=== PATIENT | male | born 1995 | race Caucasian/White ===

== ENCOUNTER 2021-03-12 15:07 | Emergency (ER) | payer SELFPAY ==
[2021-03-12 15:16] VITALS: BP 168/82; PULSE 128; RESP 26; TEMP 37; O2SAT 97; BMI 22.8
--- NOTE | 2021-03-12 15:36 | PC.PHAR ---
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
--- NOTE | 2021-03-12 15:37 | ED_ITS ---
HPI - Wound/Laceration General: Chief Complaint: Wound/Laceration Stated Complaint: FALL Time Seen by Provider: 03/12/21 15:31 History of Present Illness: HPI narrative: Patient is a 26-year-old male comes to the ED with injury to left hand. Patient says he fell down some steps at his home and his left hand hit through a window and broke it. He has multiple cuts all over his left hand and says it hurts for him to move his fingers. Patient says he is up-to-date on his tetanus. Associated symptoms: Denies chills, fever(s), nausea or vomiting Review of Systems Const: Denies: fever(s), chills or fatigue Eyes: Denies: change in vision or eye discomfort ENMT: Denies: throat pain, odynophagia, nasal discharge or nasal congestion Card: Denies: chest pain, palpitations, edema, swelling of feet/ankles, dyspnea on exertion or orthopnea Resp: Denies: dyspnea, productive cough or non-productive cough GI: Denies: abdominal pain, nausea, vomiting, diarrhea, constipation or hematochezia : Denies: flank pain, difficulty urinating, dysuria or hematuria Musc: Denies: neck pain, back pain or extremity swelling Skin/Breast: Reports: new lesions (Multiple linear superficial lacerations on left hand.); Denies: rash Neuro: Denies: headache(s), numbness in extremities or weakness in extremities Physical Exam Const: COMMON NORMALS: no acute distress, patient oriented x3 and alert GENERAL APPEARANCE: cooperative and comfortable HENMT: COMMON NORMALS: normocephalic HEAD & SCALP: normocephalic MOUTH: Normal oral and palatal mucosa present THROAT: posterior oropharynx normal and uvula midline Neck/C-Spine: COMMON NORMALS: supple GENERAL: Yes normal visual inspection Resp: COMMON NORMALS: normal respiratory effort, No retractions, No use of accessory muscles and clear to auscultation bilaterally AUSCULTATION: clear to auscultation bilaterally Cardio: COMMON NORMALS: regular rate, regular rhythm, S1 normal heart sound present, S2 normal heart sound present, No gallops present (Cardio), No clicks present (Cardio), No murmurs present (Cardio) and Peripheral pulses 2+ throu ghout RATE: regular rate RHYTHM: regular rhythm HEART SOUNDS: S1 normal heart sound present and S2 normal heart sound present PERIPHERAL PULSES: Peripheral pulses 2+ throughout GI: COMMON NORMALS: Normal to inspection, nondistended, normoactive bowel sounds present, Soft to palpation, non-tender and no masses PALPATION: Yes Soft to palpation : COMMON NORMALS: Yes no CVA tenderness BLADDER/KIDNEY EXAM: Yes no CVA tenderness Back/Pelvis: COMMON NORMALS: no CVA tenderness Extremity: NARRATIVE EXTREMITY EXAM: Left hand?patient has multiple superficial lacerations to left hand and wrist. Left hand has five 1 cm superficial linear lacerations to left hand. There is minimal bleeding at some of the lacerations. No foreign body seen. GENERAL: Yes normal exam except as noted Neuro: COMMON NORMALS: patient oriented x3 and moves all extremities SENSORIUM/ORIENTATION: Yes alert Skin: NARRATIVE SKIN EXAM: Left hand?patient has multiple superficial lacerations to left hand and wrist. Left hand has five 1 cm superficial linear lacerations to left hand. There is minimal bleeding at some of the lacerations. No foreign body seen. GENERAL SKIN EXAM: dry skin Procedures Laceration Laceration 1: Site: hand Side (If applicable): left Size (cm): 1 (Patient had 5 superficial 1 cm lacerations on left hand.) Description: linear Depth: simple, single layer Local Anesthetic: lidocaine 1% Amount of anesthesia used (mL): 10 Skin layer closed with: nylon Size (cm): 4-0 Number of sutures: 10 (10 total sutures used to close the small 5 linear lacerations on left hand.) Technique: simple, interrupted Course Vital Signs: Vital signs: Vital Signs Temperature 98.6 F 03/12/21 15:16 Pulse Rate 118 H 03/12/21 15:58 Respiratory Rate 18 03/12/21 15:58 Blood Pressure 160/83 03/12/21 15:58 Pulse Oximetry 97 03/12/21 15:58 MDM - Wound/Laceration MDM Narrative: Medical decision making narrative: Patient is a 26-year-old male comes to the ED with multiple lacerations on left hand. Patient says his left hand hit some glass and broke and that is what caused lacerations. Exam shows 5 superficial 1 cm laceration on left hand and wrist. There is minimal bleeding. X-ray shows no acute fractures or findings. Lacerations were irrigated extensively with normal saline and hand was cleaned with iodine wash. Lidocaine 1% used as local. I used a total of 10 sutures to close up the five 1 cm linear lacerations on patient's left hand. Patient was discharged home with a prescription for Keflex. He was instructed on suture care and when to get sutures removed. Follow-up with medical provider for suture removal in 7 to 10 days. Patient understood and agreed with plan. Imaging Data^: Xray Ortho: Attestation: I personally reviewed and interpreted this imaging study as follows: Radiologist's impression: [employer] [place] [address] XRay Report Signed Patient: Pawan Olivares Unit #: [id number] : 1995 Age/Sex: 26 / M ADM Date: 03/12/21 Loc: ER Room/Bed: Attending Dr: Ordering Provider/Ordering MD: Lee Amos Date of Service: 03/12/21 Procedure(s): XR hand LT min 3V* 73798 Accession Number(s): [id number] Report Number: [id number] PROCEDURE INFORMATION: Exam: XR Left Hand Exam date and time: 03/12/2021 4:10 PM Age: 26 years old Clinical indication: Injury or trauma; Other: Hit glass; Blunt trauma (contusions or hematomas); Hand; Left; Additional info: Hand injury, hit glass TECHNIQUE: Imaging protocol: XR Left hand. Views: 3 or more views. COMPARISON: No relevant prior studies available. FINDINGS: Bones/joints: No fractures. Alignment unremarkable. Flexion deformity 5th digit PIP joint. No erosion. No lytic lesion. Soft tissues: Soft tissue swelling over the dorsum of the hand. No soft tissue foreign body. XR/XR hand LT min 3V* [id number] IMPRESSION: 1. No acute osseous abnormality of left hand. 2. Nonspecific flexion deformity 5th digit PIP joint. Dictated By: Young Solorio Signed By: Young Solorio Signed Date/Time: 03/12/211625 DD/ 23 Discharge Plan Discharge Patient Disposition: Home Clinical Impression: Laceration of multiple sites of hand and wrist Qualifiers: Encounter type: initial encounter Laterality: left Qualified Code(s): S61.412A - Laceration without foreign body of left hand, initial encounter Condition: Stable Prescriptions: New cephalexin 500 mg capsule 500 mg PO Q6H 3 Days Qty: 12 RF: 0 No Action ibuprofen 200 mg Tablet 800 mg PO PRN RF: 0 Discharge Orders: Discharge ED (Routine); Ordered 03/12/21 Ordered By: Lee Amos Discharge Diet: Regular Discharge Activity: Increase activity as tolerated Patient Instructions: Suture Care (ED), Laceration (ED) Activity Restrictions/Additional Instructions: Take full course of antibiotics as prescribed. Keep laceration site clean and dry for the next 48 hours. Then after that you can clean and re-bandage daily. Watch for signs of infection such as redness, warmth, increased tenderness and puslike drainage. If you see the signs of infection return to the ED, urgent care or PCP for reevaluation. call your PCP to schedule a follow-up appointment for reevaluation and suture removal in about 10 days. Continue taking all home meds. Follow discharge plans as discussed. You can return to the ED if symptoms worsen. 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
[2021-03-12 15:58] VITALS: BP 160/83; PULSE 118; RESP 18; O2SAT 97
[2021-03-12] MEDS: lidocaine 1% INJ 20 mL INJECTION (16:24)
== END 2021-03-12 17:22 | disposition home or self-care (01) ==
PROVIDERS: Emergency Provider Physician Assistant
DX: S61.412A Laceration without foreign body of left hand, initial encounter (principal); W01.110A Fall on same level from slipping, tripping and stumbling with subsequent striking against sharp glass, initial encounter
CPT/HCPCS: 12002; 73130; 99283

== ENCOUNTER 2021-03-20 09:18 | Emergency (ER) | payer SELFPAY ==
[2021-03-20 09:26] VITALS: BP 126/105; PULSE 132; RESP 16; TEMP 36.6; O2SAT 98; BMI 20.9
--- NOTE | 2021-03-20 09:34 | ED_ITS ---
HPI - Extremity Problem General: Chief complaint: Extremity Problem,Nontraumatic Stated complaint: CANT MOVE HAND AFTER STITCHES Time Seen by Provider: 03/20/21 09:19 History of Present Illness: HPI Narrative: 26-year-old male presents with complaints of inability to move hand. He was seen hereIn the emergency room after putting his hand through a glass window he had multiple small lacerations all of which were sutured otherwise cleaned by the PA. He states now he can move his left fifth finger. He states it is now locked in flexion. He denies further injury. He did have a previous injury is a large laceration on his hand forearm. It appears consistent with a compartment syndrome when I asked him about this he confirmed. MD Complaint: extremity pain Onset (ago): week(s) Pain Consistency: constant Location: left Quality: aching Radiation: none Exacerbating factors: range of motion Associated symptoms: Reports arthralgias and myalgias; Deny chest pain or fever(s) Context: recent surgery/procedure (Laceration repairs.) Review of Systems Const: Denies: fever(s), chills, body aches, change in appetite, fatigue or malaise ENMT: Denies: throat pain, ear or mastoid pain, nasal discharge or nasal congestion Card: Denies: chest pain, edema, dyspnea on exertion or orthopnea Resp: Denies: dyspnea, productive cough or non-productive cough GI: Denies: abdominal pain, nausea, vomiting, diarrhea, constipation or bloating Physical Exam Const: COMMON NORMALS: no acute distress GENERAL APPEARANCE: cooperative and comfortable ORIENTATION/CONSCIOUSNESS: Yes awake, Yes oriented to person, Yes oriented to place and Yes oriented to time HENMT: COMMON NORMALS: normocephalic, atraumatic and hearing grossly normal bilaterally HEAD & SCALP: normocephalic and atraumatic Neck/C-Spine: COMMON NORMALS: no JVD Resp: COMMON NORMALS: normal respiratory effort, No retractions, No use of accessory muscles and clear to auscultation bilaterally AUSCULTATION: clear to auscultation bilaterally Cardio: COMMON NORMALS: no JVD, regular rate, regular rhythm and No murmurs present (Cardio) RATE: regular rate RHYTHM: regular rhythm Extremity: NARRATIVE EXTREMITY EXAM: Multiple small wounds on the hands. Most of which have sutures in place sutures were removed by Ember Bahena. Prior to removal and examined the patient there is no evidence of infection no drainage no dehiscence of the wounds. He complains mostly of pain and a 1 cm laceration overlying the volar of the distal ulna just proximal to the wrist crease. Ulnar pulses palpable. It is lateral to the flexor tendons of the left hand. Patient holds the left fifth finger in flexion. Reviewing the previous x-ray the finger was in the similar position at the time he arrived and was seen on March 12. Patient is able to fully extend with passive range of motion. He reports somewhat diminished sensation to the left fifth finger with sharp touch. Capillary refill is normal. There are no lacerations from the 03/12 event on the volar surface of the forearm that would have contributed to unopposed flexion. Neuro: SENSORIUM/ORIENTATION: Yes oriented to person, Yes oriented to place and Yes oriented to time Course Vital Signs: Vital signs: Vital Signs Temperature 97.9 F 03/20/21 09:26 Pulse Rate 132 H 03/20/21 09:26 Respiratory Rate 16 03/20/21 09:26 Blood Pressure 126/105 03/20/21 09:26 Pulse Oximetry 98 03/20/21 09:26 MDM - Extremity (Nontraumatic) MDM Narrative: Medical decision making narrative: Reviewed previous x-ray reviewed his previous hip injury history with him as well. Discussed with the patient that on the previous x-ray the finger was in flexion similar as it is today. He responded with an explicit have laced commentary on that finding. Patient was advised that the sutures removed there is nothing further that would be done in the emergency room will refer him to Ortho for further evaluation. He can return at any time if he needs. Patient was noted to be tachycardic at the time of his visit here in the emergency room clinically he appears to be under the influence of methamphetamines. 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
--- NOTE | 2021-03-20 11:35 | DCPLANNER ---
grants manager had message to schedule a follow up appointment for patient with ortho for hand pain. grants manager called the ortho clinic, spoke with Kirsten, gave clinic patients information. grants manager was told that patients information would be printed and reviewed. Clinic will call patient with appointment information.
== END 2021-03-20 10:10 | disposition home or self-care (01) ==
PROVIDERS: Emergency Provider Family Medicine
DX: M79.642 Pain in left hand (principal)
CPT/HCPCS: 99281

== ENCOUNTER 2021-07-03 17:23 | Inpatient (IN) | payer SELFPAY ==
[2021-07-03 17:27] VITALS: BP 100/75; PULSE 124; RESP 18; TEMP 36.9; O2SAT 97; BMI 23.7
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
[2021-07-03 17:53] LABS: Basophils % 0.6 %; Eosinophils # 0.2 10^3/uL (0.0-0.8); Eosinophils % 4.5 %; Hematocrit 48.2 % (42.0-52.0); Lymphocytes # 2.9 10^3/uL (0.8-4.8); Lymphocytes % 53.6 %; Mean Corpuscular HGB Conc 33.2 g/dL (30.0-36.0); Mean Corpuscular Hemoglobin 32.3 pg (28.0-34.0); Mean Corpuscular Volume 97.2 fL (80-94); Mean Platelet Volume 10.1 fL (7.4-10.4); Monocytes # 0.4 10^3/uL (0.2-0.9); Monocytes % 7.8 %; Neutrophils # 1.78 10^3/uL (1.8-7.7); Neutrophils % 33.1 %; Nucleated Red Blood Cells % 0 %; Platelet Count 255 10^3/cmm (130-400); Red Blood Count 4.96 10^6/uL (4.1-5.3); Red Cell Distribution Width 12.5 % (12.1-15.1); White Blood Count 5.4 10^3/uL (4.0-10.0)
[2021-07-03 18:22] LABS: Alanine Aminotransferase 26 U/L (0-41); Albumin Level 4.6 g/dL (3.5-5.2); Alcohol Level 186 mg/dL (0-10); Alkaline Phosphatase 81 IU/L (40-130); Aspartate Amino Transferase 29 U/L (0-40); Blood Urea Nitrogen 13 mg/dL (6-20); Carbon Dioxide 16 mmol/L (22-29); Chloride 103 mmol/L (98-107); Globulin 2.8 g/dL (1.3-4.6); Glomerular Filtration Rate 66.2 mL/min (90-130); Glucose 138 mg/dL (65-115); Osmolality Calculated 292 mOsm/kg (285-295); Sodium 140 mmol/L (136-145); Total Bilirubin 0.4 mg/dL (0.15-1.2); Total Protein 7.4 g/dL (6.6-8.7)
[2021-07-03 18:25] LABS: Acetaminophen < 5.0 ug/mL (10-30); Salicylate < 0.3 mg/dL (3-10)
[2021-07-03 18:26] LABS: Anion Gap 24.5 (5-19); Potassium 3.5 mmol/L (3.5-5.1)
[2021-07-03 18:34] LABS: Amphetamines Screen Urine Positive (Negative); Barbiturates Screen Urine Negative (Negative); Benzodiazepines Screen Urine Negative (Negative); Cocaine Screen Urine Negative (Negative); Opiate Screen Urine Negative (Negative); PCP Screen Urine Negative (Negative); THC Screen Urine Positive (Negative)
--- NOTE | 2021-07-03 19:04 | PC.NURSE ---
Report from ALEKSANDR Ruiz
--- NOTE | 2021-07-03 19:17 | PC.NURSE ---
Calm and cooperative at this time; eyes closed, easily awakened. Lights down for comfort. Sitter outside room.
[2021-07-03 20:21] LABS: SARS Covid-2 Antigen Negative (Negative)
[2021-07-03 20:25] VITALS: BP 101/81; PULSE 98; RESP 18; O2SAT 97
[2021-07-03 21:41] VITALS: BP 113/92; PULSE 99; RESP 16; TEMP 37.1; O2SAT 92
[2021-07-03 22:00] VITALS: BP 121/85; PULSE 95; RESP 20; TEMP 37.2; O2SAT 93
--- NOTE | 2021-07-03 23:06 | PC.NURSE ---
Skin check revealed no wounds or injuries.
[2021-07-04 06:00] VITALS: RESP 18
--- NOTE | 2021-07-04 07:01 | PC.NURSE ---
per charge nurse to wait to get pt vitals due to being on precautions/hughrodrigo/[id number]
[2021-07-04] MEDS: thiamine 100 mg Tablet PO (09:04)
[2021-07-04] MEDS: multivitamin therapeutic Tablet 1 TAB PO (09:04)
[2021-07-04] MEDS: folic acid 1 mg Tablet PO (09:04)
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
[2021-07-04 14:00] VITALS: BP 112/65; PULSE 66; RESP 16; TEMP 36.5; O2SAT 98
[2021-07-04 15:00] LABS: Coronavirus Test Green County Not Detected
[2021-07-04 20:55] VITALS: BP 121/81; PULSE 75; RESP 18; TEMP 36.9; O2SAT 99
[2021-07-05 06:00] VITALS: BP 122/76; PULSE 56; RESP 17; TEMP 36.4; O2SAT 98
[2021-07-05] MEDS: multivitamin therapeutic Tablet 1 TAB PO (09:28)
[2021-07-05] MEDS: thiamine 100 mg Tablet PO (09:28)
[2021-07-05] MEDS: folic acid 1 mg Tablet PO (09:28)
[2021-07-05 14:00] VITALS: BP 106/64; PULSE 79; RESP 16; TEMP 36.9; O2SAT 98
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
[2021-07-05 16:43] VITALS: BP 106/64; PULSE 79; RESP 16; TEMP 36.9; O2SAT 98
== END 2021-07-05 18:12 | disposition home or self-care (01) | DRG 897 ==
LOC: ER 17:50 → NP 07-04 06:39
PROVIDERS: Admitting Provider Psychiatry & Neurology Child & Adolescent Psychiatry; Emergency Provider Family Medicine; Visit Provider Psychiatry & Neurology Child & Adolescent Psychiatry
DX: F10.10 Alcohol abuse, uncomplicated (principal); R45.851 Suicidal ideations; Z20.822 Contact with and (suspected) exposure to COVID-19; Y90.6 Blood alcohol level of 120-199 mg/100 ml; F15.90 Other stimulant use, unspecified, uncomplicated; F12.90 Cannabis use, unspecified, uncomplicated; F17.210 Nicotine dependence, cigarettes, uncomplicated; Z81.8 Family history of other mental and behavioral disorders
CPT/HCPCS: 80053; 80306; 80307; 85025; 87426; 87635; 99285

== ENCOUNTER 2021-08-01 21:44 | Inpatient (IN) | payer SELFPAY ==
[2021-08-01 21:51] VITALS: BP 143/99; PULSE 115; RESP 18; TEMP 36.6; O2SAT 98; BMI 21.7
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
[2021-08-01 22:12] LABS: Basophils % 0.4 %; Eosinophils % 0.3 %; Hematocrit 42.2 % (42.0-52.0); Hemoglobin 14.5 g/dL (11.7-16.6); Lymphocytes # 2.8 10^3/uL (0.8-4.8); Mean Corpuscular HGB Conc 34.4 g/dL (30.0-36.0); Mean Corpuscular Hemoglobin 31.9 pg (28.0-34.0); Mean Platelet Volume 10.1 fL (7.4-10.4); Monocytes # 0.8 10^3/uL (0.2-0.9); Neutrophils # 6.26 10^3/uL (1.8-7.7); Neutrophils % 63.1 %; Nucleated Red Blood Cells % 0 %; Platelet Count 260 10^3/cmm (130-400); Red Blood Count 4.54 10^6/uL (4.1-5.3); Red Cell Distribution Width 12.4 % (12.1-15.1); White Blood Count 9.9 10^3/uL (4.0-10.0)
[2021-08-01 22:30] VITALS: BP 173/126; PULSE 136; RESP 26; O2SAT 95
[2021-08-01 22:34] LABS: Alanine Aminotransferase 17 U/L (0-41); Albumin Level 4.8 g/dL (3.5-5.2); Alkaline Phosphatase 72 IU/L (40-130); Anion Gap 17.7 (5-19); Aspartate Amino Transferase 21 U/L (0-40); Blood Urea Nitrogen 10 mg/dL (6-20); Calcium 9.3 mg/dL (8.5-10.5); Carbon Dioxide 23 mmol/L (22-29); Chloride 103 mmol/L (98-107); Globulin 2.7 g/dL (1.3-4.6); Glucose 88 mg/dL (65-115); Osmolality Calculated 288 mOsm/kg (285-295); Potassium 3.7 mmol/L (3.5-5.1); Sodium 140 mmol/L (136-145); Total Bilirubin 0.9 mg/dL (0.15-1.2); Total Protein 7.5 g/dL (6.6-8.7)
[2021-08-01 22:38] LABS: Acetaminophen < 5.0 ug/mL (10-30); Alcohol Level < 10 mg/dL (0-10); Salicylate < 0.3 mg/dL (3-10)
--- NOTE | 2021-08-01 22:44 | XRR_ITS ---
PROCEDURE INFORMATION: Exam: XR Right Elbow Exam date and time: 08/01/2021 10:44 PM Age: 26 years old Clinical indication: Injury or trauma; Fall; Right; Patient HX: Laceration to elbow TECHNIQUE: Imaging protocol: XR Right elbow. Views: 3 or more views. COMPARISON: No relevant prior studies available. FINDINGS: Bones/joints: No fracture or dislocation. Soft tissues: Evidence of soft tissue injury in the dorsoulnar aspect of the proximal elbow. XR/XR elbow RT min 3V* [id number] IMPRESSION: No fracture.
[2021-08-01] MEDS: LORazepam 2 mg/mL INJ 1 mL IM (22:57)
[2021-08-01 23:00] VITALS: BP 152/100; PULSE 112; RESP 20; O2SAT 94
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
[2021-08-01 23:15] VITALS: BP 152/100; PULSE 117; RESP 24; O2SAT 93
--- NOTE | 2021-08-01 23:20 | PC.NURSE ---
4 navjot applied to patient right elbow by Dr. Benjamin. patient tolerated well.
[2021-08-02 03:06] VITALS: BP 118/77; PULSE 81; RESP 22; O2SAT 98
[2021-08-02 03:15] VITALS: BP 118/77; PULSE 81; RESP 22; TEMP 37; O2SAT 98
[2021-08-02 03:43] VITALS: BP 118/77; PULSE 81; RESP 22; O2SAT 98
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
--- NOTE | 2021-08-02 08:52 | PC.OT ---
OT EVALUATION ATTEMPTED; PATIENT SLEEPS AND DOES NOT AWAKEN DESPITE MULTIPLE ATTEMPTS. WILL ATTEMPT AGAIN AT A LATER TIME.
[2021-08-02 13:56] VITALS: BP 108/72; PULSE 94; RESP 18; TEMP 36.6; O2SAT 96
[2021-08-02] MEDS: LORazepam 1 mg Tablet PO (14:05)
[2021-08-02] MEDS: ARIPiprazole 10 mg Tablet PO (14:05)
--- NOTE | 2021-08-02 14:05 | PC.NURSE ---
Addendum entered by Honey Ruiz LPN 08/02/21 18:35: PRN MED EFFECTIVE NO FURTHER C/O ANXIETY/AGITATION Original Note: PRN ATIVAN 1 MG GIVEN PO PER PHYSICIAN REQUEST & PT C/O ANXIETY/AGITATION.
--- NOTE | 2021-08-02 17:27 | PM.NHP ---
Providers/Chief Complaint Admitting Physician: Jacob Pichardo MD Chief Complaint: SI HPI NPU History of Present Illness Pawan Olivares is a 26 year old male who presented to the emergency department report: Chief Complaint: Psychiatric Symptoms Stated Complaint: SI Time Seen by Provider: 08/01/21 21:52 Source: patient and police Mode of arrival: other (police) Limitations: no limitations History of Present Illness: HPI Narrative: 26-year-old male who is here with police. He was arrested today for possession of a firearm and since being in [facility] been saying he was suicidal want to kill himself and was hitting his head against the wall. They brought him here. They are going to release him from his arrest into our custody. When I speak to patient he is agitated he has a history of methamphetamine abuse and is under the influence of meth. He states he has suicidal thoughts at times but is evading my questions and will not answer them straight and refuses answer most of my questions. Associated symptoms: Reports suicidal ideation. He was admitted to the neuropsychiatric unit for definitive treatment of those issues. Pawan presents today quite distressed, picking behind doors checking around with significant duress. He was admitted to the neuropsychiatric unit a month ago and he denies symptoms of changes and excerpt of the note is included below. He presents today acknowledging drug use, paranoia and we a long discussion about the impact of methamphetamine on cognition, psychosis etc. We discussed the psychosis but he really struggled with his level of agitation and fear. We discussed the risk-benefit and alternatives of initiating Abilify for the psychosis and Ativan as needed while he is in the hospital for his anxiety and fear/panic. He understood agreed to proceed as documented in this note. Per his 07/04/2021 [facility] inpatient psychiatric evaluation: History of Present Illness Pawan Olivares is a 26 year old male who was brought by the police to the [facility] emergency room yesterday with erratic driving, agitated and confrontational behavior, and suicidal threats. He was medically stabilized and cleared in the ED then admitted on a 96-hour hold. The ED note states: 26-year-old male presents to the emergency room in custody of police. He was contacted after a domestic dispute and then drove erratically. He made suicide dull threats and ideations to the police once he was picked up he then became confrontational and somewhat combative he was restrained in handcuffs and given 5 mg of IV Haldol by EMS who is also on scene. He is still very agitated on arrival here. He continues to make suicidal threats in my presence. He did have access to a firearm in his car. The patient confirms some of the above details, however he does not remember everything that happened, because he was drinking too much and blacked out. He says now, I am done drinking. He denies any history of withdrawal symptoms such as shaking, sweating, seizures, or hearing voices/seeing things. He has had 2 DUIs in the past, and 2014. Somewhere around that time he attended rehab twice, 60 days each time, once in [place], and once here in [place]. He says he snorts meth and also smokes marijuana. He smokes 1 pack of cigarettes per day. The patient says that he has been in a good mood mostly, and sleep, appetite, and energy are all normal. He denies feelings of helplessness, hopelessness, and worthlessness. He denies suicidal and homicidal ideation. He denies auditory and visual hallucinations. He does say that he has a history of some psychiatric treatment, and was in a prison when he was younger. He cannot say why. He took medications back then, but does not remember what they were. Psychiatric history: As above. Substance use history: As above. Family history: Patient said his father had mental health issues, but does not know what they were. He says his father of a brain tumor when he was just 11, and he was the one who found him. This was a traumatic experience that affected him for quite some time. Psychosocial history: The patient says that he moved around a bit when he was young, but was off and in [place]. He dropped out of school in the 11th grade and that just ran around. He had 1 child, then got and had another child with his . 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 He is worried he is going to lose his job. Legal history: No legal difficulties at this time. Medical history: Denies any significant medical history. He did put his left arm through a window 1 time, and is having evaluation for possible surgery to repair the lasting damage. Meds NPU Home Medications Medication Instructions Recorded Confirmed Last Taken Type No Known Home Medications 07/03/21 08/02/21 Unknown History Allergies Allergy/AdvReac Type Severity Reaction Status Date / Time No Known Allergies Allergy Verified 07/03/21 17:39 Mental Status Exam MSE Comments: This is a slender male in hospital scrubs with adequate grooming and eye contact. No abnormal movements or psychomotor agitation. Semicooperative with exam in significant distress. Speech was normal rate and volume. Mood described as anxious, affect euthymic. Thought process organized. Thought content: Patient denied suicidal or homicidal ideation, he endorsed paranoia and seemed extremely guarded and paranoid, he appeared to be attending to internal stimuli. Attention and concentration were limited and memory appeared unreliable but none were formally tested. He is alert and oriented x3. Insight and judgment were impaired, impulse control is impaired. Vitals/I&O/Wt Last Vital Signs Temp 97.9 F 08/02/21 13:56 Pulse 94 08/02/21 13:56 Resp 18 08/02/21 13:56 BP 108/72 08/02/21 13:56 Pulse Ox 96 08/02/21 13:56 Weight last 48 hrs Weight 72.575 kg Data NPU : 08/01/21 22:04 08/01/21 22:04 A&P Assessment and plan (1) Suicidal ideation: Status: Acute (2) Drug-induced psychotic disorder: Status: Acute (3) Alcohol abuse: Status: Acute (4) Methamphetamine use: Status: Acute Additional A&P Information Pawan Olivares is a 26 year old white male who presented to the emergency department with psychosis, suicidal thinking, active drug use likely creating his psychotic state who presents clearly paranoid and delusional but open to a trial of medication. 1. Continue current medication. Start Abilify 10 mg p.o. every morning and Ativan milligram as needed. 2. Continue every 15 minute checks for safety. 3. Encourage individual, group and milieu therapies. 4. Encourage sober living treatment after discharge at the highest level of care to which he is willing to commit. Involuntary Hold Information 96 Hour Hold: 96 Hour Involuntary Admission: Yes 96 Hour Hold Ending Date: 08/07/21 96 Hour Hold Ending Time: 23:52 Attestations NPU Medical Necessity Statement*: Inpatient hospitalization is medically necessary and the clinically appropriate intervention at this time. We will monitor medications and make changes as indicated. Patient will be in the hospital for over two midnights. Likely length of stay 3 to 5 days. 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
[2021-08-02] MEDS: trazodone 50 mg Tablet PO (20:32)
[2021-08-02 21:49] VITALS: BP 119/75; PULSE 77; RESP 18; TEMP 37.1; O2SAT 97
[2021-08-03 06:00] VITALS: BP 119/75; PULSE 76; RESP 18; TEMP 37.2; O2SAT 97
[2021-08-03] MEDS: ARIPiprazole 10 mg Tablet PO (08:10)
[2021-08-03 14:00] VITALS: BP 117/73; PULSE 74; RESP 17; TEMP 36.4; O2SAT 95
--- NOTE | 2021-08-03 17:29 | PM.NPN ---
Subjective NPU Subjective: Interval history: Patient presents today reporting he just feels bad with the situation. He answers all no to questions about how he was doing with the medication or if he was feeling better. Clearly seem to be less guarded and paranoid and I entered the room. He was open to a brief conversation but ultimately agreed that he needed to be here and that he would continue taking the medication. Mental Status Exam MSE Comments: This is a slender male in hospital scrubs with adequate grooming and eye contact. No abnormal movements or psychomotor retardation. Semicooperative with exam in mild to moderate distress. Speech was decreased rate and volume. Mood described as I do not know affect subdued and not agitated like yesterday. Thought process organized. Thought content: Patient denied suicidal or homicidal ideation, he endorsed paranoia but appeared less so than yesterday, he did not appear to be attending to internal stimuli. Attention and concentration were improving and memory appeared unreliable but none were formally tested. He is alert and oriented x3. Insight and judgment were impaired, impulse control is limited. Vitals/I&O/Wt Last Vital Signs Temp 97.5 F L 08/03/21 14:00 Pulse 74 08/03/21 14:00 Resp 17 08/03/21 14:00 BP 117/73 08/03/21 14:00 Pulse Ox 95 08/03/21 14:00 Weight last 48 hrs Weight 72.575 kg Data NPU : 08/01/21 22:04 08/01/21 22:04 A&P Additional A&P Information (1) Suicidal ideation: (2) Drug-induced psychotic disorder: (3) Alcohol abuse: (4) Methamphetamine use: Additional A&P Information Pawan Olivares is a 26 year old white male who presented to the emergency department with psychosis, suicidal thinking, active drug use likely creating his psychotic state who presents clearly paranoid and delusional but open to a trial of medication. 1. Continue current medication. 2. Continue every 15 minute checks for safety. 3. Encourage individual, group and milieu therapies. 4. Encourage sober living treatment after discharge at the highest level of care to which he is willing to commit. Involuntary Hold Information 96 Hour Hold: 96 Hour Involuntary Admission: Yes 96 Hour Hold Ending Date: 08/07/21 96 Hour Hold Ending Time: 23:52 Attestations NPU Medical Necessity Statement*: Inpatient hospitalization is medically necessary and the clinically appropriate intervention at this time. We will monitor medications and make changes as indicated. Likely length of stay 3 to 5 days. 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
[2021-08-03] MEDS: trazodone 50 mg Tablet PO (20:15)
[2021-08-03 22:00] VITALS: BP 100/61; PULSE 69; RESP 17; TEMP 36.7; O2SAT 99
--- NOTE | 2021-08-04 03:06 | PC.NURSE ---
PRN 2014 Administered 50mg Trazodone for sleep. Will continue to monitor pt.
[2021-08-04 06:00] VITALS: BP 106/69; PULSE 66; RESP 17; TEMP 36.7; O2SAT 99
[2021-08-04] MEDS: ARIPiprazole 10 mg Tablet PO (10:07)
[2021-08-04 13:54] VITALS: BP 108/75; PULSE 106; RESP 15; TEMP 36.5; O2SAT 97
--- NOTE | 2021-08-04 17:25 | PM.NPN ---
Subjective NPU Subjective: Interval history: Patient presents today lying in his bed and still stating quite isolative. He identified that he is not sure if he is feeling better and is still having irritability but identified that his psychosis is resolving to some degree he was much less emotional and agitated. But he was extremely ambivalent about consideration of medication and the consideration of alcohol and other drug treatment moving forward. He agreed we would continue to work with him on interventions that would help his situation. Mental Status Exam MSE Comments: This is a slender male in hospital scrubs with adequate grooming and eye contact. No abnormal movements or psychomotor retardation. Semicooperative with exam in mild to moderate distress. Speech was decreased rate and volume. Mood described as a little better, affect subdued . Thought process organized. Thought content: Patient denied suicidal or homicidal ideation, he endorsed paranoia and continues to appear slightly less guarded, he did not appear to be attending to internal stimuli. Attention and concentration were improving and memory appeared unreliable but none were formally tested. He is alert and oriented x3. Insight and judgment were impaired, impulse control is limited. Vitals/I&O/Wt Last Vital Signs Temp 98.2 F 08/04/21 20:18 Pulse 70 08/04/21 20:18 Resp 17 08/04/21 20:18 BP 112/72 08/04/21 20:18 Pulse Ox 98 08/04/21 20:18 Data NPU : 08/01/21 22:04 08/01/21 22:04 A&P Additional A&P Information (1) Suicidal ideation: (2) Drug-induced psychotic disorder: (3) Alcohol abuse: (4) Methamphetamine use: Additional A&P Information Pawan Olivares is a 26 year old white male who presented to the emergency department with psychosis, suicidal thinking, active drug use likely creating his psychotic state who presents clearly paranoid and delusional but open to a trial of medication. 1. Continue current medication. Continue to offer antipsychotic to expedite recovery. 2. Continue every 15 minute checks for safety. 3. Encourage individual, group and milieu therapies. 4. Encourage sober living treatment after discharge at the highest level of care to which he is willing to commit. Involuntary Hold Information 96 Hour Hold: 96 Hour Involuntary Admission: Yes 96 Hour Hold Ending Date: 08/07/21 96 Hour Hold Ending Time: 23:52 Attestations NPU Medical Necessity Statement*: Inpatient hospitalization is medically necessary and the clinically appropriate intervention at this time. We will monitor medications and make changes as indicated. Likely length of stay 2-4 days. 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
[2021-08-04 20:18] VITALS: BP 112/72; PULSE 70; RESP 17; TEMP 36.8; O2SAT 98
[2021-08-04] MEDS: OLANZapine 5 mg ODT PO (21:43)
[2021-08-04] MEDS: hyDROXYzine 25 mg Capsule 50 MG PO (21:43)
--- NOTE | 2021-08-04 21:45 | PC.NURSE ---
pt requesting sleep and anxiety meds. Vistaril 50mg po and zyprexa zydis 5mg po given.
--- NOTE | 2021-08-04 23:00 | PC.NURSE ---
pt in room resting quietly with both eyes closed
[2021-08-05 06:00] VITALS: BP 106/64; PULSE 68; RESP 16; TEMP 36.7; O2SAT 99; BMI 21.7
[2021-08-05] MEDS: ARIPiprazole 10 mg Tablet PO (09:43)
--- NOTE | 2021-08-05 12:23 | P.PN_ITS ---
Subjective NPU Subjective: Interval history: Patient presented today endorsed her to be discharged and his first truly goal oriented behavior since his hospitalization. It appeared that he was being fairly triggered by the significant psychosis (people on his unit. We discussed the fact that when he presented a few days ago he was demonstrating psychosis at that level. He endorsed that he un derstood and was able to talk about the need for him to discontinue the methamphetamine use but he does report that he really struggled with that but was unclear what he was willing to do to change the outcome. We discussed that the treatment team will be available in the morning and we would be able to consider the possibilities. He reports he is eating and sleeping a little better. Mental Status Exam MSE Comments: This is a slender male in hospital scrubs with adequate grooming and eye contact. No abnormal movements or psychomotor retardation. More cooperative with exam in mild distress. Speech was decreased rate and volume. Mood described as a little better, affect subdued and a little irritable. Thought process organized. Thought content: Patient denied suicidal or homicidal ideation, he endorsed paranoia that was decreasing and was appearing less guarded, he denied auditory or visual hallucinations. Attention and concentration were improving and memory appeared more reliable but none were formally tested. He is alert and oriented x3. Insight and judgment were limited, but improving, impulse control is limited. Vitals/I&O/Wt Last Vital Signs Temp 98.0 F 08/05/21 06:00 Pulse 68 08/05/21 06:00 Resp 16 08/05/21 06:00 BP 106/64 08/05/21 06:00 Pulse Ox 99 08/05/21 06:00 Weight last 48 hrs Weight 72.575 kg Data NPU : 08/01/21 22:04 08/01/21 22:04 A&P Additional A&P Information (1) Suicidal ideation: (2) Drug-induced psychotic disorder: (3) Alcohol abuse: (4) Methamphetamine use: Additional A&P Information Pawan Olivares is a 26 year old white male who presented to the emergency department with psychosis, suicidal thinking, active drug use likely creating his psychotic state who presents clearly paranoid and delusional but open to a trial of medication. 1. Continue current medication. Continue to offer antipsychotic to expedite recovery. 2. Continue every 15 minute checks for safety. 3. Encourage individual, group and milieu therapies. 4. Encourage sober living treatment after discharge at the highest level of care to which he is willing to commit. Involuntary Hold Information 96 Hour Hold: 96 Hour Involuntary Admission: Yes 96 Hour Hold Ending Date: 08/07/21 96 Hour Hold Ending Time: 23:52 Attestations NPU Medical Necessity Statement*: Inpatient hospitalization is medically necessary and the clinically appropriate intervention at this time. We will monitor medications and make changes as indicated. Likely length of stay 1-3 days. 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
[2021-08-05 13:53] VITALS: BP 117/79; PULSE 102; RESP 14; TEMP 36.7; O2SAT 97
[2021-08-05 22:00] VITALS: BP 136/79; PULSE 85; RESP 17; TEMP 37; O2SAT 98
[2021-08-06] MEDS: ARIPiprazole 10 mg Tablet PO (08:51)
[2021-08-06 09:11] LABS: Amphetamines Screen Urine Positive (Negative); Barbiturates Screen Urine Negative (Negative); Benzodiazepines Screen Urine Negative (Negative); Cocaine Screen Urine Negative (Negative); Opiate Screen Urine Negative (Negative); PCP Screen Urine Negative (Negative); THC Screen Urine Positive (Negative)
[2021-08-06 12:52] VITALS: BP 125/84; PULSE 78; RESP 17; TEMP 36.8; O2SAT 99
--- NOTE | 2021-08-06 18:01 | P.PN_ITS ---
Subjective NPU Subjective: Interval history: Sonia presents today reporting a plan to go to this program in [place] but no clear process obvious that is going to happen. He is lobbying heavily to be discharged to his grandmother's house. Contacted grandmother and she has the same concerns with this automatic typewriter inspector. She reports that she wants him to get to this program in [place] where his mother lives. Her fear is that he will connect with one of his drug Connects prior to her being able to get him out to [place]. She reports he already asked for some girls number who is intertwined in his addiction. His 96 hour hold is up tomorrow and we agreed to work with his mom on some discharge arrangement tomorrow that gives him the best answer maintaining his sobriety after discharge. Mental Status Exam MSE Comments: This is a slender male in hospital scrubs with adequate grooming and eye contact. No abnormal movements except for resolving psychomotor retardation. More cooperative with exam in no acute distress. Speech was still decreased rate and volume. Mood described as better, affect subdued and a still somewhat irritable. Thought process organized. Thought content: Patient denied suicidal or homicidal ideation, there were no delusions reported and he was appearing less guarded, he denied auditory or visual hallucinations. Attention and concentration were improving and memory appeared more reliable but none were formally tested. He is alert and oriented x3. Insight and judgment were limited, but improving, impulse control is limited. Vitals/I&O/Wt Last Vital Signs Temp 98.1 F 08/06/21 20:21 Pulse 81 08/06/21 20:21 Resp 19 H 08/06/21 20:21 BP 126/85 08/06/21 20:21 Pulse Ox 96 08/06/21 20:21 Weight last 48 hrs Weight 72.575 kg Data NPU : 08/01/21 22:04 08/01/21 22:04 A&P Additional A&P Information (1) Suicidal ideation: (2) Drug-induced psychotic disorder: (3) Alcohol abuse: (4) Methamphetamine use: Additional A&P Information Pawan Olivares is a 26 year old white male who presented to the emergency department with psychosis, suicidal thinking, active drug use likely creating his psychotic state who presents clearly paranoid and delusional but open to a trial of medication. 1. Continue current medication. We will see if he will consider or reconsider naltrexone in the morning. 2. Continue every 15 minute checks for safety. 3. Encourage individual, group and milieu therapies. 4. Encourage sober living treatment after discharge at the highest level of care to which he is willing to commit. 5. Likely discharge in the morning but we can talk him into signing in and having a direct discharge to the airport or anything that would give him the best chance of getting their sober. Involuntary Hold Information 96 Hour Hold: 96 Hour Involuntary Admission: Yes 96 Hour Hold Ending Date: 08/07/21 96 Hour Hold Ending Time: 23:52 Attestations NPU Medical Necessity Statement*: Inpatient hospitalization is medically necessary and the clinically appropriate intervention at this time. We will monitor medications and make changes as indicated. Likely length of stay 1-2 days. 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
[2021-08-06 20:21] VITALS: BP 126/85; PULSE 81; RESP 19; TEMP 36.7; O2SAT 96
[2021-08-06] MEDS: hyDROXYzine 25 mg Capsule 50 MG PO (21:16)
--- NOTE | 2021-08-06 21:30 | PC.NURSE ---
pt requested anxiety med, Vistaril 50mg po given.
--- NOTE | 2021-08-06 22:00 | PC.NURSE ---
pt resting quietly with both eyes closed
[2021-08-07 06:00] VITALS: BP 113/81; PULSE 71; RESP 17; TEMP 36.8; O2SAT 94
[2021-08-07] MEDS: ARIPiprazole 10 mg Tablet PO (09:03)
[2021-08-07] MEDS: nicotine 2 mg Gum BUCCAL (12:58)
[2021-08-07 14:00] VITALS: BP 124/86; PULSE 104; RESP 16; TEMP 36.2; O2SAT 97
--- NOTE | 2021-08-07 17:03 | P.PN_ITS ---
Subjective NPU Subjective: Interval history: Patient presents today with his 96-hour hold coming to an end but reporting that he had a long conversation with his mother which led to him signing himself in the hospital. We are collectively as a team with his family working on getting him into a rehab who begins consideration of admissions tomorrow. We are trying to create a plan where he can be picked up by grandma and taken to the airport and go to [place] and go directly to this rehab. He continues to struggle with ambivalence but at this point is committed to trying to get into his inpatient program and resist falling back into the addictive behaviors that has caused him to psychotic presentation and major difficulties in his life. Mental Status Exam MSE Comments: This is a slender male in hospital scrubs with adequate grooming and eye contact. No abnormal movements except for resolving psychomotor retardation. More cooperative with exam in no acute distress. Speech was still decreased rate and volume. Mood described as better, affect subdued. Thought process organized. Thought content: Patient denied suicidal or homicidal ideation, there were no delusions reported and he was appearing less guarded, he denied auditory or visual hallucinations. Attention and concentration were improving and memory appeared more reliable but none were formally tested. He is alert and oriented x3. Insight and judgment were limited, but improving, impulse control is limited. Vitals/I&O/Wt Last Vital Signs Temp 98.2 F 08/07/21 22:00 Pulse 47 L 08/07/21 22:00 Resp 18 08/07/21 22:00 BP 117/89 08/07/21 22:00 Pulse Ox 97 08/07/21 22:00 Data NPU : 08/01/21 22:04 08/01/21 22:04 A&P Additional A&P Information (1) Suicidal ideation: (2) Drug-induced psychotic disorder: (3) Alcohol abuse: (4) Methamphetamine use: Additional A&P Information Pawan Olivares is a 26 year old white male who presented to the emergency department with psychosis, suicidal thinking, active drug use likely creating his psychotic state who presents clearly paranoid and delusional but open to a trial of medication. 1. Continue current medication. May have to rethink his medication as the program is going to make a limitations on track. However there currently is not an indication that he has psychotic disorder absent the drug use and so he likely absent methamphetamine exposure would be able to go off of the Abilify without difficulty upon admission. 2. Continue every 15 minute checks for safety. 3. Encourage individual, group and milieu therapies. 4. Encourage sober living treatment after discharge at the highest level of care to which he is willing to commit. 5. Discharge likely in the next 48 hours with hope of him going directly to the airport or anything that would give him the best chance of getting there ([facility]) sober. Involuntary Hold Information 96 Hour Hold: 96 Hour Involuntary Admission: Yes 96 Hour Hold Ending Date: 08/07/21 96 Hour Hold Ending Time: 23:52 Attestations NPU Medical Necessity Statement*: Inpatient hospitalization is medically necessary and the clinically appropriate intervention at this time. We will monitor medications and make changes as indicated. Likely length of stay 1-2 days. 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
[2021-08-07] MEDS: hyDROXYzine 25 mg Capsule 50 MG PO (21:39)
[2021-08-07] MEDS: neomycin-poly-bacitracin oint 28 gm 1 APPLIC TOPICAL (21:39)
[2021-08-07] MEDS: trazodone 50 mg Tablet PO (21:40)
--- NOTE | 2021-08-07 21:40 | PC.NURSE ---
PT REQUESTED SLEEP AND ANXIETY MEDS, TRAZODONE 50MG PO FOR SLEEP AND VISTARIL 50MG FOR ANXIETY GIVEN.
[2021-08-07 22:00] VITALS: BP 117/89; PULSE 47; RESP 18; TEMP 36.8; O2SAT 97
--- NOTE | 2021-08-07 23:00 | PC.NURSE ---
PT RESTING QUIETLY WITH BOTH EYES CLOSED.
[2021-08-08 06:00] VITALS: BP 117/89; PULSE 47; RESP 18; TEMP 36.8; O2SAT 97
[2021-08-08] MEDS: ARIPiprazole 10 mg Tablet PO (08:47)
[2021-08-08 13:49] VITALS: BP 124/87; PULSE 76; RESP 18; TEMP 36.5; O2SAT 100
--- NOTE | 2021-08-08 15:26 | P.DS_ITS ---
Diagnoses at Discharge Discharge Diagnosis (1) Suicidal ideation: Status: Resolved (2) Drug-induced psychotic disorder: Status: Resolved (3) Alcohol abuse: Status: Acute (4) Methamphetamine use: Status: Acute Reason for Visit Reason for Visit: SI Brief History: History of Present Illness Pawan Olivares is a 26 year old male who presented to the emergency department report: Chief Complaint: Psychiatric Symptoms Stated Complaint: SI Time Seen by Provider: 08/01/21 21:52 Source: patient and police Mode of arrival: other (police) Limitations: no limitations History of Present Illness: HPI Narrative: 26-year-old male who is here with police. He was arrested today for possession of a firearm and since being in [facility] been saying he was suicidal want to kill himself and was hitting his head against the wall. They brought him here. They are going to release him from his arrest into our custody. When I speak to patient he is agitated he has a history of methamphetamine abuse and is under the influence of meth. He states he has suicidal thoughts at times but is evading my questions and will not answer them straight and refuses answer most of my questions. Associated symptoms: Reports suicidal ideation. He was admitted to the neuropsychiatric unit for definitive treatment of those issues. Pawan presents today quite distressed, picking behind doors checking around with significant duress. He was admitted to the neuropsychiatric unit a month ago and he denies symptoms of changes and excerpt of the note is included below. He presents today acknowledging drug use, paranoia and we a long discussion about the impact of methamphetamine on cognition, psychosis etc. We discussed the psychosis but he really struggled with his level of agitation and fear. We discussed the risk-benefit and alternatives of initiating Abilify for the psychosis and Ativan as needed while he is in the hospital for his anxiety and fear/panic. He understood agreed to proceed as documented in this note. Per his 07/04/2021 [facility] inpatient psychiatric evaluation: History of Present Illness Pawan Olivares is a 26 year old male who was brought by the police to the [facility] emergency room yesterday with erratic driving, agitated and confrontational behavior, and suicidal threats. He was medically stabilized and cleared in the ED then admitted on a 96-hour hold. The ED note states: 26-year-old male presents to the emergency room in custody of police. He was contacted after a domestic dispute and then drove erratically. He made suicide dull threats and ideations to the police once he was picked up he then became confrontational and somewhat combative he was restrained in handcuffs and given 5 mg of IV Haldol by EMS who is also on scene. He is still very agitated on arrival here. He continues to make suicidal threats in my presence. He did have access to a firearm in his car. The patient confirms some of the above details, however he does not remember everything that happened, because he was drinking too much and blacked out. He says now, I am done drinking. He denies any history of withdrawal symptoms such as shaking, sweating, seizures, or hearing voices/seeing things. He has had 2 DUIs in the past, and 2013. Somewhere around that time he attended rehab twice, 60 days each time, once in [place], and once here in [place]. He says he snorts meth and also smokes marijuana. He smokes 1 pack of cigarettes per day. The patient says that he has been in a good mood mostly, and sleep, appetite, and energy are all normal. He denies feelings of helplessness, hopelessness, and worthlessness. He denies suicidal and homicidal ideation. He denies auditory and visual hallucinations. He does say that he has a history of some psychiatric treatment, and was in a retirement when he was younger. He cannot say why. He took medications back then, but does not remember what they were. Psychiatric history: As above. Substance use history: As above. Family history: Patient said his father had mental health issues, but does not know what they were. He says his father of a brain tumor when he was just 11, and he was the one who found him. This was a traumatic experience that affected him for quite some time. Psychosocial history: The patient says that he moved around a bit when he was young, but was off and in [place]. He dropped out of school in the 11th grade and that just ran around. He had 1 child, then got and had another child with his . 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 He is worried he is going to lose his job. Legal history: No legal difficulties at this time. Medical history: Denies any significant medical history. He did put his left arm through a window 1 time, and is having evaluation for possible surgery to repair the lasting damage. Hospital Course Hospital Course He slowly acclimated to the individual, group and milieu therapies provided. At first he was resistant to medication and has a psychosis improving he became more open to a trial of medication. He had Abilify milligram p.o. every morning for a few days and is psychosis resolved. We discussed that this was very likely drug-induced psychosis and so the fact that the rehab would not allow an antipsychotic we agreed would be fine or should be fine. He showed marked improvement. He was able to contract for safety prior to discharge. During the hospitalization, patient had routine laboratory studies which were within normal limits except for few outliers. Additionally there was a general medical evaluation which was also within normal limits and revealed no new acute processes. Discharge Summary: At the time of discharge, he denied psychosis or lethality. Mood and anxiety were well managed. Patient endorsed a plan to avoid all drugs of abuse and follow-up with the aftercare recommendations of the treatment team. Patient was evaluated and deemed to be absent credible lethality, and had achieved the maximum benefit from an inpatient hospitalization, so was discharged. Involuntary Hold Information 96 Hour Hold: 96 Hour Involuntary Admission: Yes 96 Hour Hold Ending Date: 08/07/21 96 Hour Hold Ending Time: 23:52 Mental Status Exam MSE Comments: This is a slender male in hospital scrubs with adequate grooming and eye contact. No abnormal movements except for resolving psychomotor retardation. More cooperative with exam in no acute distress. Speech was more normal rate and volume. Mood described as better, affect congruent. Thought process organized. Thought content: Patient denied suicidal or homicidal ideation, there were no delusions reported and he was appearing less guarded, he denied auditory or visual hallucinations. Attention and concentration were improving and memory appeared more reliable but none were formally tested. He is alert and oriented x3. Insight and judgment were limited, but improving, impulse control is limited. Discharge Data Data Completed and Pending: Completed Studies During Hospitalization Category Date Time Status XR elbow RT min 3 V* [id number] Stat Exams 08/01/21 22:44 Completed Vitals: Last Vital Signs Temp 97.7 F 08/08/21 13:49 Pulse 76 08/08/21 13:49 Resp 18 08/08/21 13:49 BP 124/87 08/08/21 13:49 Pulse Ox 100 08/08/21 13:49 Discharge Plan Discharge Patient Disposition: Home Condition: Stable Prescriptions: Continued No Known Home Medications RF: 0 Discharge Orders: Discharge Order (Routine); Ordered 08/08/21 Ordered By: Toy Huggins Referrals: [facility] [Other] - 08/17/21 9:45 am Discharge Diet: Regular Discharge Activity: Resume usual activity Patient Instructions: Opioid Safety Discharge Attestations NPU Time Spent in Discharge Care*: less than 30 min Specific Discharge Activities: Specific discharge activities: educating patient, discussing with correctional case records supervisor/social workers/dc planners, documenting/other paperwork and evaluating patient/reviewing data Coding Level of Care Code Acute [facility] DC note Diagnoses Suicidal ideation R45.851 Drug-induced psychotic disorder F19.959 Alcohol abuse F10.10 Methamphetamine use F15.10
[2021-08-08 15:39] VITALS: BP 124/87; PULSE 76; RESP 18; TEMP 36.5; O2SAT 100
== END 2021-08-08 16:12 | disposition home or self-care (01) | DRG 897 ==
LOC: ER 23:39 → NP 08-02 00:26
PROVIDERS: Admitting Provider Psychiatry & Neurology Child & Adolescent Psychiatry; Emergency Provider Emergency Medicine; Visit Provider Psychiatry & Neurology Psychiatry
DX: F15.959 Other stimulant use, unspecified with stimulant-induced psychotic disorder, unspecified (principal); R45.851 Suicidal ideations; F10.10 Alcohol abuse, uncomplicated; W19.XXXA Unspecified fall, initial encounter; Y93.89 Activity, other specified; Y92.239 Unspecified place in hospital as the place of occurrence of the external cause; Z78.1 Physical restraint status
CPT/HCPCS: 12002; 73080; 80053; 80306; 80307; 85025; 96372; 99285; J2060; J3490

== ENCOUNTER 2021-09-13 07:23 | Emergency (ER) | payer SELFPAY ==
[2021-09-13 07:30] VITALS: BP 124/83; PULSE 98; RESP 15; TEMP 36.7; O2SAT 98; BMI 22.4
--- NOTE | 2021-09-13 07:38 | W.ED.EXTPRO ---
HPI - Extremity Problem General: Chief complaint: Extremity Problem,Nontraumatic Stated complaint: Pain in Left Arm Time Seen by Provider: 09/13/21 07:27 History of Present Illness: HPI Narrative: Patient is a 26-year-old male who comes to the ED with left wrist pain. Patient fell and broke through a window causing laceration on his wrist approximately 6 months ago. He was scheduled to have follow-up appointment with Ortho hand specialist in [place] and he missed the appointment. He then rescheduled the appointment for August 30 and missed that appointment as well because he said his transmission vehicle was out. He still having a lot of pain in the left wrist and thinks that there might still be a piece of glass in his wrist. Denies any reinjury or trauma to left wrist. Associated symptoms: Deny chest pain, fever(s) or rash Review of Systems Const: Denies: fever(s), chills or fatigue Eyes: Denies: change in vision or eye discomfort ENMT: Denies: throat pain, odynophagia, nasal discharge or nasal congestion Card: Denies: chest pain, palpitations, edema, swelling of feet/ankles, dyspnea on exertion or orthopnea Resp: Denies: dyspnea, productive cough or non-productive cough GI: Denies: abdominal pain, nausea, vomiting, diarrhea, constipation or hematochezia : Denies: flank pain, difficulty urinating, dysuria or hematuria Musc: Reports: extremity pain (left wrist); Denies: neck pain, back pain or extremity swelling Skin/Breast: Denies: rash or new lesions Neuro: Denies: headache(s), numbness in extremities or weakness in extremities Physical Exam Const: COMMON NORMALS: no acute distress, patient oriented x3 and alert GENERAL APPEARANCE: cooperative and comfortable HENMT: COMMON NORMALS: normocephalic HEAD & SCALP: normocephalic MOUTH: Normal oral and palatal mucosa present THROAT: posterior oropharynx normal and uvula midline Eye: COMMON NORMALS: Equal, round and reactive pupils present PUPIL: Yes Equal, round and reactive pupils present Neck/C-Spine: COMMON NORMALS: supple GENERAL: Yes normal visual inspection Resp: COMMON NORMALS: normal respiratory effort, No retractions, No use of accessory muscles and clear to auscultation bilaterally AUSCULTATION: clear to auscultation bilaterally Cardio: COMMON NORMALS: regular rate, regular rhythm, S1 normal heart sound present, S2 normal heart sound present, No gallops present (Cardio), No clicks present (Cardio), No murmurs present (Cardio) and Peripheral pulses 2+ throughout RATE: regular rate RHYTHM: regular rhythm HEART SOUNDS: S1 normal heart sound present and S2 normal heart sound present PERIPHERAL PULSES: Peripheral pulses 2+ throughout GI: COMMON NORMALS: Normal to inspection, nondistended, normoactive bowel sounds present, Soft to palpation, non-tender and no masses PALPATION: Yes Soft to palpation : COMMON NORMALS: Yes no CVA tenderness BLADDER/KIDNEY EXAM: Yes no CVA tenderness Back/Pelvis: COMMON NORMALS: no CVA tenderness Extremity: LEFT UPPER EXTREMITY: Yes wrist Left wrist: Yes palpation (Tenderness over ulnar aspect of left wrist.) and Yes ROM (Full range of motion) and Yes hand & digits Left hand and digits: Yes tendon exam (Patient's fifth digit is held in flexion position.) Neuro: COMMON NORMALS: patient oriented x3 and moves all extremities SENSORIUM/ORIENTATION: Yes alert Skin: GENERAL SKIN EXAM: dry skin Course Vital Signs: Vital signs: Vital Signs Temperature 98.1 F 09/13/21 07:30 Pulse Rate 98 09/13/21 07:48 Respiratory Rate 18 09/13/21 07:48 Blood Pressure 124/83 09/13/21 07:48 Pulse Oximetry 98 09/13/21 07:48 MDM - Extremity (Nontraumatic) MDM Narrative: Medical decision making narrative: Patient is a 26-year-old male who comes to the ED with left wrist pain. Patient injured his wrist over 6 months ago and was supposed to follow-up with a hand specialist in [place] but has missed an appointment with them twice. He still having some left wrist pain but denies any reinjury. X-ray of left wrist shows no acute findings or foreign body seen. Patient was discharged home and told to call Ortho hand specialist in [place] and set up another appointment for further evaluation. Patient understood and agree with plan. Imaging Data^: Xray Ortho: Attestation: I personally reviewed and interpreted this imaging study as follows: Radiologist's impression: [address] [id number] ReportSigned Patient: Pawan Olivares AUnit #: [id number]: [id number]#:[id number]/Sex: 26 / MADM Date: 09/13/21Loc: ERRoom/Bed:Attending Dr: Ordering Provider/Ordering MD: Lee Amos Date of Service: 09/13/21 Procedure(s): XR wrist LT min 3V* [id number] Accession Number(s): [id number] Report Number: [id number] WS: [id number] Left wrist, 3 views, 09/13/2021 Clinical Data: possible FB around ulnar aspect of wrist Comparison: Left wrist, 03/12/2021. Findings: No fractures or dislocations are seen. The carpal bones are intact. There is no soft tissue swelling. The distal radius and ulna are not remarkable. No radiopaque foreign body is seen. XR/XR wrist LT min 3V* [id number] Impression: Negative left wrist. Dictated By:Mary Pastrana MDSigned By:Mary Pastrana MDSigned Date/Time:09/13/21833DD/ 0 Discharge Plan Discharge Patient Disposition: Home Clinical Impression: Left wrist pain Condition: Stable Prescriptions: New Celebrex 100 mg capsule 100 mg PO BID PRN (Reason: pain) Qty: 20 RF: 0 No Action No Known Home Medications RF: 0 Discharge Orders: Discharge ED (Routine); Ordered 09/13/21 Ordered By: Lee Amos Discharge Diet: Regular Discharge Activity: Increase activity as tolerated Patient Instructions: Wrist Injury (ED) Activity Restrictions/Additional Instructions: Follow-up with medical provider as directed. Reschedule your appointment with the Ortho hand specialist in [place]. take medications as prescribed. Return to the ER or your medical provider if condition worsens. Please read and understand discharge instructions. Thank you for choosing [facility] for your healthcare needs today. Please realize this is an emergency room and that we are providing you with a medical screening exam and this may not be complete and all inclusive of all the testing and or work up that you may need to determine your ailment or severity of your illness. It is very important that you follow up as instructed or that you return to the Emergency Department should you have concerns or if your condition changes or worsens in any way. Coding Level of Care Code ED Oncology Coordinator for Chg Fwd Exam Comprehensive
--- NOTE | 2021-09-13 07:44 | XR_ITS ---
WS: [id number] Left wrist, 3 views, 09/13/2021 Clinical Data: possible FB around ulnar aspect of wrist Comparison: Left wrist, 03/12/2021. Findings: No fractures or dislocations are seen. The carpal bones are intact. There is no soft tissue swelling. The distal radius and ulna are not remarkable. No radiopaque foreign body is seen. XR/XR wrist LT min 3V* [id number] Impression: Negative left wrist.
[2021-09-13 07:48] VITALS: BP 124/83; PULSE 98; RESP 18; O2SAT 98
[2021-09-13] MEDS: HYDROcodone-acetaminophen 7.5-325 mg Tablet 1 TAB PO (07:55)
== END 2021-09-13 08:36 | disposition home or self-care (01) ==
PROVIDERS: Emergency Provider Physician Assistant
DX: M25.532 Pain in left wrist (principal)
CPT/HCPCS: 73110; 99283

== ENCOUNTER → 2023-05-12 15:12 | Outpatient (BNVA) | payer BC, MEDICAID, SELFPAY | PROVIDERS: Visit Provider Emergency Medicine | DX: Z20.2 Contact with and (suspected) exposure to infections with a predominantly sexual mode of transmission (principal); Z11.3 Encounter for screening for infections with a predominantly sexual mode of transmission; N34.2 Other urethritis | CPT/HCPCS: 87491; 87591; 87661 ==

== ENCOUNTER → 2025-02-17 11:36 | Outpatient (BNVA) | payer BC, MEDICAID, SELFPAY | DX: B34.9 Viral infection, unspecified (principal) | CPT/HCPCS: 87400 ==

== ENCOUNTER 2025-07-08 23:39 | Emergency (ER) | payer BC, MEDICAID, SELFPAY ==
--- OUTSIDE RECORDS SUMMARY | 2015-11-30 09:00 | XMS_ITS | Continuity of Care Document ---
Author Organization [facility] Address [address] [place] [address] Phone Care Team Providers Care Cloth Coverer Name Role Phone Breana Rhodes Unavailable Unavailable Medications Medication Instructions Dosage Effective Dates (start - stop) Status Comments hydrocodone 5 mg-acetaminophen 325 mg tablet take 1 tablet by oral route every 4 - 6 hours as needed for pain 1.00 tablet - No Longer Active Procedures Procedure Date EXTRACT-ERUPTED TOOTH OR EXPOSED ROOT Ja Emergency Exam Advance Directives Directive Yes / No Effective Date File Name No Information Encounters Encounter Description Practice Location Reason(s) For Visit Diagnoses Date Provider Providers Copied on Encounter [facility], [address] [place], [place] [address]., [address], [place], [place], [facility], tel:[phone] [facility] Dental Dental examination Carmelo Riojasmel. [address], [facility], . tel:[phone] Referring Provider: Breana Rhodes, [address] [place] [address]. tel:[phone] Family History Family Member Type Diagnosis Age At Onset No Information Payers Payer name Insurance type Covered constitution party ID Authoriza nettie(s) [facility] Social History Type Description Quantity Date Captured Comments Sex Male Smoking Status No Information Chief Complaint And Reason For Visit No Information Reason For Referral Reason For Referral No Information History Of Present Illness Encounter Date Complaint History Of Prese nt Illness No Information Functional Status Date Functional Assessmen t No Information Instructions Date Instruction Additional Infor mation No Information Assessments Type Assessment Date No Information Patient Care Teams Name Effective Dates (start - stop) Status Members No Information
[2025-07-08 23:40] VITALS: BP 156/103; PULSE 139; RESP 20; TEMP 37.1; O2SAT 98; BMI 21.9
--- NOTE | 2025-07-08 23:56 | CTR_ITS ---
PROCEDURE INFORMATION: Exam: CT Head Without Contrast Exam date and time: 07/09/2025 12:16 AM Age: 30 years old Clinical indication: Arrival by law enforcement for possible seizure activity. Patient intoxicated. ; Additional info: Reported seizure-like activity, head injury TECHNIQUE: Imaging protocol: Computed tomography of the head without contrast. Radiation optimization: All CT scans at this facility use at least one of these dose optimization techniques: automated exposure control; mA and/or kV adjustment per patient size (includes targeted exams where dose is matched to clinical indication); or iterative reconstruction. COMPARISON: No relevant prior studies available. RADIATION DOSE METRICS: Total DLP (mGy-cm): 1054.45 FINDINGS: Brain: Normal. No hemorrhage. Unremarkable white matter. No mass effect. Cerebral ventricles: No ventriculomegaly. Paranasal sinuses: Visualized sinuses are unremarkable. No fluid levels. Mastoid air cells: Visualized mastoid air cells are well aerated. Bones: Unremarkable. No acute fracture. Soft tissues: Unremarkable. CT/CT head wo con* [id number] IMPRESSION: No acute intracranial abnormality.
--- NOTE | 2025-07-08 23:56 | CTR_ITS ---
PROCEDURE INFORMATION: Exam: CT Cervical Spine Without Contrast Exam date and time: 07/09/2025 12:18 AM Age: 30 years old Clinical indication: Arrival by law enforcement for possible seizure activity. Patient intoxicated. ; Additional info: Head injury TECHNIQUE: Imaging protocol: Computed tomography of the cervical spine without contrast. Radiation optimization: All CT scans at this facility use at least one of these dose optimization techniques: automated exposure control; mA and/or kV adjustment per patient size (includes targeted exams where dose is matched to clinical indication); or iterative reconstruction. COMPARISON: CT head wo con* [id number] 07/09/2025 12:16 AM RADIATION DOSE METRICS: Total DLP (mGy-cm): 283.87 FINDINGS: Bones/joints: No acute fracture. Normal alignment. C2-C3: No significant disc bulge or herniation. No severe spinal canal stenosis. No significant neural foraminal narrowing. C3-C4: No significant disc bulge or herniation. No severe spinal canal stenosis. No significant neural foraminal narrowing. C4-C5: No significant disc bulge or herniation. No severe spinal canal stenosis. No significant neural foraminal narrowing. C5-C6: No significant disc bulge or herniation. No severe spinal canal stenosis. No significant neural foraminal narrowing. C6-C7: No significant disc bulge or herniation. No severe spinal canal stenosis. No significant neural foraminal narrowing. C7-T1: No significant disc bulge or herniation. No severe spinal canal stenosis. No significant neural foraminal narrowing. Lungs: Lung apices are normal. Soft tissues: Unremarkable. CT/CT cervical spin wo con* [id number] IMPRESSION: No acute cervical spine fracture.
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
[2025-07-09 00:09] LABS: Hematocrit 40.7 % (37-53); Hemoglobin 13.90 g/dL (11.27-16.99); Mean Corpuscular HGB Conc 34.2 g/dL (30-55); Mean Corpuscular Hemoglobin 29.7 pg (27-33); Mean Corpuscular Volume 87.0 fl (82-101); Nucleated Red Blood Cells % 0 %; Platelet Count 233 10^3/cmm (157-399); Red Blood Count 4.68 10^6/uL (3.85-5.65); White Blood Count 6.30 10^3/uL (3.29-11.43)
[2025-07-09 00:35] LABS: PCP Screen Urine Negative (Negative)
[2025-07-09 00:36] LABS: Alanine Aminotransferase 9 U/L (0-41); Albumin Level 4.9 g/dL (3.5-5.2); Alcohol Level 245 mg/dL (0-10); Alkaline Phosphatase 69 U/L (40-130); Anion Gap 17.8 (5-19); Aspartate Amino Transferase 18 U/L (0-40); Blood Urea Nitrogen 12 mg/dL (6-20); Calcium 9.4 mg/dL (8.5-10.5); Carbon Dioxide 21 mmol/L (22-29); Chloride 111 mmol/L (98-107); Creatinine Clr Calc Pharmacy 115.0186; Globulin 2.5 g/dL (1.3-4.6); Glucose 128 mg/dL (65-115); Osmolality Calculated 303 mOsm/kg (285-295); Potassium 3.8 mmol/L (3.5-5.1); Sodium 146 mmol/L (136-145); Total Protein 7.4 g/dL (6.6-8.7)
[2025-07-09 00:45] LABS: Acetaminophen < 5.0 ug/mL (10-30); Salicylate < 0.3 mg/dL (3-10)
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
== END 2025-07-09 01:33 | disposition home or self-care (01) ==
PROVIDERS: Emergency Provider Physician Assistant; PCP Family Medicine
DX: R56.9 Unspecified convulsions (principal); S09.8XXA Other specified injuries of head, initial encounter; X58.XXXA Exposure to other specified factors, initial encounter; R45.851 Suicidal ideations; Z72.0 Tobacco use; F10.129 Alcohol abuse with intoxication, unspecified; Y90.8 Blood alcohol level of 240 mg/100 ml or more
CPT/HCPCS: 70450; 72125; 80053; 80306; 80307; 82550; 85025; 99284